=== PATIENT | female | born 1990 | race Caucasian/White ===

== ENCOUNTER 2019-03-16 15:28 | Emergency (ER) | payer MEDICAID ==
[2019-03-16] MEDS ORDERED: EPINEPHrine 1 MG/ML AMP IM STA (15:43)
[2019-03-16] MEDS ORDERED: methylPREDNISolone SUCCINATE 125 MG/2 ML VIAL IVP STA (15:43)
--- NOTE | 2019-03-16 15:49 | ED Physician Documentation ---
History of Present Illness - Stated complaint Stated Complaint: ALLERGIC REACTION - Chief complaint Chief Complaint: Allergic Rx - History obtained from History obtained from: Patient - History of Present Illness Timing: Today (A half an hour after eating Kisw[place]ili food she developed diffuse redness. No throat swelling or shortness of breath. 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.) Review of Systems Constitutional: denies: Fever, Chills Nose: denies: Rhinorrhea / runny nose, Congestion Cardiac: denies: Chest pain / pressure, Palpitations Respiratory: denies: Dyspnea, Cough PD PAST MEDICAL HISTORY - Present Medications Home Medications: Ambulatory Orders Medication Instructions Recorded Confirmed EPINEPHrine [Epinephrine] 0.3 mg IJ ONCE PRN #2 auto.injct 03/16/19 predniSONE [Deltasone] 60 mg PO DAILY 5 Days #15 tablet 03/16/19 - Allergies Allergies/Adverse Reactions: Allergies Allergy/AdvReac Type Severity Reaction Status Date / Time chocolate flavor Allergy Anaphylaxis Verified 03/16/19 15:41 Penicillins Allergy Anaphylaxis Verified 03/16/19 15:42 PD ED PE NORMAL - Vitals Vital signs reviewed: Yes - General General: Alert and oriented X 3, Other (She appears overtly jittery and has diffuse erythroderma) - HEENT HEENT: Pharynx benign - Cardiac Cardiac: RRR, No murmur - Respiratory Respiratory: No respiratory distress, Clear bilaterally - Abdomen Abdomen: Non tender - Neuro Neuro: Alert and oriented X 3, Normal speech Results - Vitals Vitals: Vital Signs - 24 hr 03/16/19 03/16/19 03/16/19 15:37 15:55 16:24 Temperature 36.4 C L Heart Rate 101 H 81 69 Respiratory 14 15 14 Rate Blood Pressure 151/90 H 151/90 H 124/73 O2 Saturation 0 L 100 100 Oxygen O2 Source Room air PD MEDICAL DECISION MAKING - ED course ED course: 28-year-old woman presents with anaphylaxis to unknown trigger, potentially something in the Kisw[place]ili food. She had already received Benadryl prior to arrival and is given IM epinephrine and IV Solu-Medrol here. 28-year-old woman presents with mild anaphylaxis, likely related to Kisw[place]ili food. She received IM epinephrine and Solu-Medrol here , Was observed for several hours without recurrence . Departure - Departure Disposition: 01 Home, Self Care Clinical Impression: Anaphylactic reaction Qualifiers: Encounter type: initial encounter Qualified Code(s): T78.2XXA - Anaphylactic shock, unspecified, initial encounter Condition: Good Record reviewed to determine appropriate education?: Yes Instructions: ED Allergic Reaction General Other Prescriptions: EPINEPHrine [Epinephrine] 0.3 mg IJ ONCE PRN #2 auto.injct PRN Reason: Allergy Symptoms predniSONE [Deltasone] 60 mg PO DAILY 5 Days #15 tablet Comments: Call your doctor to arrange a follow-up appointment, make the next available appointment. In the interim, return anytime if worse or if new symptoms develop. Forms: Activity restrictions
[2019-03-16 16:24] VITALS: BP 124/73
== END 2019-03-16 17:58 | disposition home or self-care (01) ==
LOC: ED 15:28
DX: T78.2XXA Anaphylactic shock, unspecified, initial encounter (principal); X58.XXXA Exposure to other specified factors, initial encounter
CPT/HCPCS: 96372; 96374; 99284

== ENCOUNTER 2019-05-30 16:44 | Outpatient (CLI) | payer MEDICAID | END 2019-05-30 16:45 | disposition home or self-care (01) | LOC: COV 16:44 | PROVIDERS: ATTEND Family Medicine | DX: R05 Cough (principal); R50.9 Fever, unspecified | CPT/HCPCS: 81599 ==

== ENCOUNTER 2019-10-24 07:42 | Emergency (ER) | payer SELFPAY ==
--- NOTE | 2019-10-24 07:54 | ED Physician Documentation ---
PD HPI HEENT - Stated complaint Stated Complaint: L KNEE PX PD PAST MEDICAL HISTORY - Present Medications Home Medications: Ambulatory Orders Medication Instructions Recorded Confirmed EPINEPHrine [Epinephrine] 0.3 mg IJ ONCE PRN #2 auto.injct 03/16/19 predniSONE [Deltasone] 60 mg PO DAILY 5 Days #15 tablet 03/16/19 - Allergies Allergies/Adverse Reactions: Allergies Allergy/AdvReac Type Severity Reaction Status Date / Time chocolate flavor Allergy Anaphylaxis Verified 03/16/19 15:41 Penicillins Allergy Anaphylaxis Verified 03/16/19 15:42 - Social History Does the pt smoke?: No Smoking Status: Never smoker Results - Vitals Vitals: Oxygen O2 Source Room air
--- NOTE | 2019-10-24 07:54 | ED Physician Documentation ---
PD HPI LOWER EXT INJURY - Stated complaint Stated Complaint: L KNEE PX - History obtained from History obtained from: Patient - History of Present Illness PD HPI LOW EXT INJURY LOCATION: Left, Knee Type of injury: Fall (She was walking down some steps and slipped with her right foot and tried to catch herself with the left landing forcefully onto the next step with the knee straight. She then twisted and fell to the left.) Where injury occurred: Home Timing - onset: How many hours ago (1), Today Timing - details: Abrupt onset, Still present (Hurts for standing or walking. No feeling of locking or giving out) Worsened by: Palpating (medial knee mainly), Other (walking with the extension part of gait.) Associated symptoms: Discolored (mild small bruise medial proximal tibial area.). No: Weakness, Numbness, Swelling Similar symptoms before: Has not had sx before Review of Systems Constitutional: denies: Fever Nose: denies: Rhinorrhea / runny nose, Congestion Throat: denies: Sore throat Respiratory: denies: Cough Skin: denies: Abrasion (s), Laceration (s) Musculoskeletal: denies: Joint swelling Neurologic: denies: Focal weakness, Numbness PD PAST MEDICAL HISTORY - Past Medical History Past Medical History: No - Present Medications Home Medications: Ambulatory Orders Medication Instructions Recorded Confirmed EPINEPHrine [Epinephrine] 0.3 mg IJ ONCE PRN #2 auto.injct 03/16/19 predniSONE [Deltasone] 60 mg PO DAILY 5 Days #15 tablet 03/16/19 Ibuprofen [Motrin] 600 mg PO TID PRN #20 tab 10/24/19 methocarbamoL [Robaxin] 500 mg PO Q6H PRN #20 tablet 10/24/19 - Allergies Allergies/Adverse Reactions: Allergies Allergy/AdvReac Type Severity Reaction Status Date / Time chocolate flavor Allergy Anaphylaxis Verified 10/24/19 07:56 hydromorphone [From Dilaudid] Allergy Unknown Verified 10/24/19 07:56 Penicillins Allergy Anaphylaxis Verified 10/24/19 07:56 - Social History Does the pt smoke?: No Smoking Status: Never smoker PD ED PE NORMAL - Vitals Vital signs reviewed: Yes - General General: Alert and oriented X 3, No acute distress, Well developed/nourished - Derm Derm: Normal color, Warm and dry - Extremities Extremities: Other (The left knee has tenderness mainly along the medial joint line and just medial to the patella. There is a small bruising on the medial proximal tibial area but no obvious deformity. There is no effusion. Cruciate ligament testing is without pain or instability. Valgus stress hurts but no laxity) - Neuro Neuro: No motor deficit, No sensory deficit Results - Vitals Vitals: Vital Signs - 24 hr 10/24/19 10/24/19 07:51 09:55 Temperature 36.8 C 36.8 C Heart Rate 67 65 Respiratory 16 16 Rate Blood Pressure 129/74 132/65 H O2 Saturation 97 99 Oxygen O2 Source Room air - Rads (name of study) left knee Radiology: Prelim report reviewed (no fractures), See rad report PD MEDICAL DECISION MAKING - ED course Complexity details: considered differential (X-ray is normal without any signs of fractures. Her exam and symptoms are consistent with an MCL strain. No obvious cruciate injury nor meniscal. Can treat with a hinged knee brace and crutches for now with progressive weightbearing), d/w patient Departure - Departure Disposition: 01 Home, Self Care Clinical Impression: Knee strain Qualifiers: Encounter type: initial encounter Laterality: left Qualified Code(s): S86.912A - Strain of unspecified muscle(s) and tendon(s) at lower leg level, left leg, initial encounter Knee MCL sprain Qualifiers: Encounter type: initial encounter Laterality: left Qualified Code(s): S83.412A - Sprain of medial collateral ligament of left knee, initial encounter Condition: Stable Record reviewed to determine appropriate education?: Yes Instructions: ED Sprain Knee Follow-Up: CHAYITO ANTOINE MD [Primary Care Provider] - Prescriptions: Ibuprofen [Motrin] 600 mg PO TID PRN #20 tab PRN Reason: Pain methocarbamoL [Robaxin] 500 mg PO Q6H PRN #20 tablet PRN Reason: Spasms Comments: Brace when up and around at limited range of motion of 0 to 30 degrees for now and can go to 0-90 after a few days if it is feeling better. This will allow for motion of the knee flexion and extension but still support it side to side which would be the main support you need for the MCL and muscle strain. Add crutches if needed for partial weightbearing. And progress weightbearing as able. I would anticipate improvement over several days and resolution in 7 to 10 days. Use the knee brace during that time but progress activity as able. Recheck if not improved well over the next several days and resolved in 7-10. It may take a knee strain 2 to 3 weeks to heal but it would be good to recheck it if it is not improving. Ibuprofen 3 times a day for pain and inflammation. Add Robaxin muscle relaxant if spasms. Ice elevate and rest the knee often today for swelling. Forms: Activity restrictions Discharge Date/Time: 10/24/19 09:56
[2019-10-24] MEDS ORDERED: IBUPROFEN 600 MG TABLET PO STA (08:15)
--- NOTE | 2019-10-24 08:47 | XRAY Report ---
PROCEDURE: Knee 3 View LT INDICATIONS: fell down stairs, knee twist/pain TECHNIQUE: 3 views of the left knee(s) were acquired. COMPARISON: None. FINDINGS: Bones: No fractures or dislocations. No suspicious bony lesions. Soft tissues: Mild joint effusion. No suspicious soft tissue calcifications. IMPRESSION: No visualized acute fracture or dislocation. However, occult injury cannot be excluded. Recommend short interval imaging follow-up in 7-10 days as clinically indicated for additional evalua tion. Reviewed by: Ksenia Rivera MD on 10/24/2019 8:46 AM PDT Approved by: Ksenia Rivera MD on 10/24/2019 8:46 AM PDT Station ID: [id number]
[2019-10-24] MEDS ORDERED: methocarbamoL 500 MG TABLET PO STA (09:12)
[2019-10-24 09:57] VITALS: BP 132/65
== END 2019-10-24 09:56 | disposition home or self-care (01) ==
LOC: ED 07:42
DX: S83.412A Sprain of medial collateral ligament of left knee, initial encounter (principal); W10.9XXA Fall (on) (from) unspecified stairs and steps, initial encounter; Y93.01 Activity, walking, marching and hiking; Y92.009 Unspecified place in unspecified non-institutional (private) residence as the place of occurrence of the external cause
CPT/HCPCS: 73562; 99283; A9270

== ENCOUNTER 2020-03-11 10:22 | Emergency (ER) | payer MEDICAID ==
[2020-03-11] MEDS ORDERED: KETOROLAC 30 MG/ML VIAL IVP STA (11:12)
[2020-03-11] MEDS ORDERED: LACTATED RINGERS 1,500 ML IV STA (11:12)
[2020-03-11] MEDS ORDERED: METOCLOPRAMIDE 10 MG/2 ML VIAL IVP STA ×2 (11:13→11:29)
[2020-03-11] MEDS ORDERED: ACETAMINOPHEN 325 MG TABLET PO STA (11:13)
[2020-03-11] MEDS ORDERED: diphenhydrAMINE 25 MG CAPSULE PO STA (11:13)
[2020-03-11] MEDS ORDERED: SODIUM CHLORIDE 0.9% IVP SCH (12:00)
[2020-03-11] MEDS ORDERED: METOCLOPRAMIDE IVP SCH (12:00)
--- NOTE | 2020-03-11 13:58 | ED Physician Documentation ---
History of Present Illness - Stated complaint Stated Complaint: AC - Chief complaint Chief Complaint: General - History obtained from History obtained from: Patient - Additonal information Additional information: 29-year-old woman, employee here, presents with headache, subjective chills, nausea/vomiting nonbloody nonbilious x4 over the past 2 days associated with low-grade fever. Headache is bilateral, worse on the right, posterior, nonradiating associated with photophobia, severe, aching. She had it yesterday, gradual onset and it went away over the course of the day but then she woke from sleep again with headache this morning. Patient denies cough, shortness of breath, abdominal pain, diarrhea, urinary symptoms, rash. She did have a Covid positive patient exposure the other day but was wearing PPE. No sick contacts at home. Review of Systems Ten Systems: 10 systems reviewed and negative Constitutional: reports: Fever, Chills, Myalgias, Fatigue GI: reports: Nausea, Vomiting. denies: Abdominal Pain Neurologic: reports: Headache PD PAST MEDICAL HISTORY - Present Medications Home Medications: Ambulatory Orders Medication Instructions Recorded Confirmed EPINEPHrine [Epinephrine] 0.3 mg IJ ONCE PRN #2 auto.injct 03/16/19 predniSONE [Deltasone] 60 mg PO DAILY 5 Days #15 tablet 03/16/19 Ibuprofen [Motrin] 600 mg PO TID PRN #20 tab 10/24/19 methocarbamoL [Robaxin] 500 mg PO Q6H PRN #20 tablet 10/24/19 - Allergies Allergies/Adverse Reactions: Allergies Allergy/AdvReac Type Severity Reaction Status Date / Time chocolate flavor Allergy Anaphylaxis Verified 03/11/20 10:42 hydromorphone [From Dilaudid] Allergy Unknown Verified 03/11/20 10:42 Penicillins Allergy Anaphylaxis Verified 03/11/20 10:42 - Social History Does the pt smoke?: No Smoking Status: Never smoker Does the pt drink ETOH?: No Does the pt have substance abuse?: No - Immunizations Immunizations are current?: Yes PD ED PE NORMAL - Vitals Vital signs reviewed: Yes - General General: Alert and oriented X 3 - HEENT HEENT: Atraumatic, PERRL, EOMI - Neck Neck: Supple, no meningeal sign - Cardiac Cardiac: RRR - Respiratory Respiratory: No respiratory distress, Clear bilaterally - Abdomen Abdomen: Non tender, Non distended - Female Female : Deferred - Rectal Rectal: Deferred - Back Back: No spinal TTP - Derm Derm: Normal color, Warm and dry - Extremities Extremities: No deformity - Neuro Neuro: Alert and oriented X 3, sand slinger 2-12 intact, No motor deficit, No sensory deficit, Normal speech - Psych Psych: Normal mood, Normal affect Results - Vitals Vitals: Vital Signs - 24 hr 03/11/20 03/11/20 03/11/20 10:39 13:25 14:16 Temperature 37.8 C 37.0 C 37.0 C Heart Rate 90 60 70 Respiratory 20 16 16 Rate Blood Pressure 127/65 106/55 L 104/56 L O2 Saturation 100 100 100 Oxygen O2 Source Room air PD MEDICAL DECISION MAKING - ED course Complexity details: re-evaluated patient ED course: Patient feeling better after symptomatic care. Will send home with Covid precautions until result comes back. Strict return precautions given. She will follow up with employee health. Departure - Departure Disposition: Home, Self Care Clinical Impression: Headache, Muscle weakness, Generalized muscle ache, Nausea and vomiting Condition: Good Instructions: ED Headache Tension Comments: You have a Covid test pending. Stay home until your result comes back. Practice good handwashing and wear a mask. Return to the ED if you experience shortness of breath or any worsening symptoms. Follow-up with employee health. Forms: Activity restrictions Discharge Date/Time: 03/11/20 14:30
[2020-03-11 14:28] VITALS: BP 104/56
== END 2020-03-11 14:30 | disposition home or self-care (01) ==
LOC: ED 10:22
DX: R51.9 Headache, unspecified (principal); R11.2 Nausea with vomiting, unspecified; R53.83 Other fatigue; Z20.828 Contact with and (suspected) exposure to other viral communicable diseases
CPT/HCPCS: 87635; 96374; 96375; 99283; 99284; A9270; J2765; J7120

== ENCOUNTER 2020-09-16 16:48 | Emergency (ER) | payer BC, MEDICAID ==
--- NOTE | 2020-09-16 17:45 | ED Physician Documentation ---
PD HPI HEAD INJURY - Stated complaint Stated Complaint: HEAD INJURY - Chief complaint Chief Complaint: Trauma Hd/Nk - History obtained from History obtained from: Patient (She hit her head last night, has persistent and actually worsening headache, light sensitivity and some nausea. No possibility of . Headache is severe.) Review of Systems Constitutional: denies: Fever, Chills Ears: reports: Reviewed and negative Nose: reports: Reviewed and negative PD PAST MEDICAL HISTORY - Past Medical History Past Medical History: No - Past Surgical History Past Surgical History: No - Allergies Allergies/Adverse Reactions: Allergies Allergy/AdvReac Type Severity Reaction Status Date / Time chocolate flavor Allergy Anaphylaxis Verified 09/16/20 17:20 hydromorphone [From Dilaudid] Allergy Unknown Verified 09/16/20 17:20 Penicillins Allergy Anaphylaxis Verified 09/16/20 17:20 - Social History Does the pt smoke?: No Smoking Status: Never smoker Does the pt drink ETOH?: No Does the pt have substance abuse?: No - Immunizations Immunizations are current?: Yes PD ED PE NORMAL - Vitals Vital signs reviewed: Yes - General General: Alert and oriented X 3, No acute distress - HEENT HEENT: PERRL, EOMI, Other (Bruise on the right forehead, TMs normal) - Neck Neck: Supple, no meningeal sign, No bony TTP - Neuro Neuro: Alert and oriented X 3, brass cutter 2-12 intact, No motor deficit, No sensory deficit, Normal speech Results - Vitals Vitals: Vital Signs - 24 hr 09/16/20 17:16 Temperature 36.8 C Heart Rate 64 Respiratory 18 Rate Blood Pressure 160/71 H O2 Saturation 99 Oxygen O2 Source Room air PD MEDICAL DECISION MAKING - ED course ED course: 30-year-old woman with severe headache after head injury, CT of the head done and unremarkable. Departure - Departure Disposition: 01 Home, Self Care Clinical Impression: Concussion Condition: Good Record reviewed to determine appropriate education?: Yes Instructions: ED Concussion Forms: Activity restrictions
--- NOTE | 2020-09-16 18:14 | CT Report ---
PROCEDURE: HEAD WO INDICATIONS: head inj TECHNIQUE: Noncontrast 4.5 mm thick angled axial sections acquired from the foramen magnum to the vertex. For r adiation dose reduction, the following was used: automated exposure control, adjustment of mA and/or kV according to patient size. COMPARISON: None. FINDINGS: Image quality: Excellent. CSF spaces: Basal cisterns are patent. No extra-axial fluid collections. Ventricles are normal in size and shape. Brain: No midline shift. No intracranial masses or hemorrhage. Nguyen-white matter interface is norm al. Skull and face: Calvarium and visualized facial bones are intact, without suspicious lesions. Sinuses: Visualized sinuses and mastoids are clear. IMPRESSION: No acute intracranial abnormality. No skull fracture. Reviewed by: Sarita Salinas MD on 09/16/2020 6:12 PM PDT Approved by: Sarita Salinas MD on 09/16/2020 6:12 PM PDT Station ID: [id number]
[2020-09-16] MEDS ORDERED: HYDROcod/ACET 5/325 Prepack 4 PO STA (18:21)
[2020-09-16 18:50] VITALS: BP 144/78
== END 2020-09-16 18:50 | disposition home or self-care (01) ==
LOC: ED 16:48
DX: S06.0X0A Concussion without loss of consciousness, initial encounter (principal); S00.83XA Contusion of other part of head, initial encounter; W22.8XXA Striking against or struck by other objects, initial encounter; Y93.01 Activity, walking, marching and hiking
CPT/HCPCS: 99283; 99284